=== PATIENT | male | born 1955 | race Caucasian/White ===

== ENCOUNTER 2016-12-07 09:13 | Emergency (ER) | payer BC ==
--- NOTE | 2016-12-07 09:50 | ED ---
Back Pain - HPI Summary HPI Summary: Pt here w/ Rt flank pain x 1 month. Initially was worse w/ twisting. Now it's worse w/ lying down for a period of time - better with standing. Feels "fullness " here w/ deep breath but no pain. Denies fever, chills, N/V/D, chest pain, SOB , cough, ab pain, dysuria, urinary frequency, hematuria, change in BM's or digestion in general (eating well, no pain, no hematochezia), skin changes, numbness, tingling, weakness. No injury leading up to pain/overuse. H/o Rt nephrolithiasis - passed 1 which was 0.5cm - was told he has another stone lingering in there a few years ago. 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 - Pain Intensity: 8 - Allergies/Home Medications Allergies/Adverse Reactions: Allergies Allergy/AdvReac Type Severity Reaction Status Date / Time No Known Allergies Allergy Verified 12/07/16 09:34 PMH/Surg Hx/FS Hx/Imm Hx Previously Healthy: Yes Endocrine/Hematology History: Reports: Hx Diabetes - ON ORAL MEDS - well controlled Cardiovascular History: Reports: Hx Hypercholesterolemia - on statin Denies: Hx Hypertension, Hx Pacemaker/ICD Respiratory History: Denies: Hx Asthma, Hx Chronic Obstructive Pulmonary Disease (COPD), Hx Pneumonia, Hx Pulmonary Embolism GI History: Denies: Hx Cirrhosis, Hx Crohn's Disease, Hx Diverticulosis, Hx Gall Bladder Disease, Hx Gastroesophageal Reflux Disease, Hx Gastrointestinal Bleed, Hx Irritable Bowel, Hx Ulcer History: Reports: Hx Kidney Stones - RIGHT SIDE. Denies: Hx Kidney Infection, Hx Renal Disease Musculoskeletal History: Denies: Hx Arthritis, Hx Back Problems Sensory History: Denies: Hx Contacts or Glasses, Hx Hearing Aid Opthamlomology History: Denies: Hx Contacts or Glasses Psychiatric History: Denies: Hx Panic Disorder - Surgical History Surgery Procedure, Year, and Place: KIDNEY STONE REMOVED. LEFT SHOULDER- CALCIUM BUILD UP. THROAT SURGERY FOR SLEEP APNEA. LEFT FOOT/ANKLE SURGERY A CHILD Hx Anesthesia Reactions: No - Immunization History Date of Tetanus Vaccine: unknown Infectious Disease History: No Infectious Disease History: Denies: Traveled Outside the [place] in Last 30 Days - Family History Known Family History: Positive: None - Social History Occupation: Employed Full-time Lives: With Family Alcohol Use: Occasionally Hx Substance Use: No Substance Use Type: Reports: None Hx Tobacco Use: No Smoking Status (MU): Never Smoked Tobacco Review of Systems Constitutional: Negative Negative: Fever, Chills, Fatigue ENT: Negative Negative: Sore Throat, Ear Ache, Nasal Discharge Cardiovascular: Negative Negative: Palpitations, Chest Pain Respiratory: Negative Negative: Shortness Of Breath, Cough Gastrointestinal: Negative Negative: Abdominal Pain, Vomiting, Diarrhea, Nausea Positive: see HPI, flank pain - see HPI. Negative: burning, dysuria, discharge , frequency, hematuria, incontinence, pain, urgency Musculoskeletal: Other - back pain as in HPI Negative: Decreased ROM Skin: Negative Negative: Rash, Bruising Neurological: Negative Negative: Headache, Weakness, Paresthesia, Numbness, Syncope, Slurred Speech Psychological: Normal All Other Systems Reviewed And Are Negative: Yes Physical Exam Triage Information Reviewed: Yes Vital Signs On Initial Exam: Initial Vitals Temp Pulse Resp BP Pulse Ox 97.6 F 86 20 145/91 96 12/07/16 09:16 12/07/16 09:16 12/07/16 09:16 12/07/16 09:16 12/07/16 09:16 Vital Signs Reviewed: Yes Appearance: Positive: Well-Appearing, No Pain Distress, Obese Skin: Positive: Warm, Dry - no erythema, no ecchymosis, no lesions over affected area Head/Face: Positive: Normal Head/Face Inspection Eyes: Positive: Normal, EOMI, Conjunctiva Clear - anicteric sclera ENT: Positive: Hearing grossly normal, Pharynx normal - mucosa moist. Negative : Nasal congestion, Nasal drainage Neck: Positive: Supple, Nontender, No Lymphadenopathy Respiratory/Lung Sounds: Positive: Clear to Auscultation, Breath Sounds Present. Negative: Rales, Rhonchi, Wheezes Cardiovascular: Positive: Normal, RRR, S1, S2. Negative: Murmur, Rub Abdomen Description: Positive: Nontender, No Organomegaly, Soft, CVA Tenderness (R) - very mild. Negative: CVA Tenderness (L) Musculoskeletal: Positive: Normal, Strength/ROM Intact - no pain w/ ROM and no pain w/ resisted ROM cervical spine, UE. Negative: Pain @ - AP and lateral compression of chest do not reproduce pain Neurological: Positive: Normal, Sensory/Motor Intact, Alert, Oriented to Person Place, Time, CN Intact II-III Psychiatric: Positive: Normal - Brandon Coma Scale Coma Scale Total: 15 Diagnostics - Vital Signs Vital Signs Temp Pulse Resp BP Pulse Ox 12/07/16 09:16 97.6 F 86 20 145/91 96 - Laboratory Result Diagrams: 12/07/16 09:55 12/07/16 09:55 Lab Statement: Any lab studies that have been ordered have been reviewed, and results considered in the medical decision making process. Back Pain Course/Dx - Course Course Of Treatment: Pt presents w/ Rt flank pain x 1 month worse lately w/ lying flat - better with standing. PE, labs and imaging are negative for acute infectious, obstructive or malignant pathology. Suspect VICKY strain d/t HPI - CT was ordered as pt has h/o stones and discussion w/ family offering U/S vs/ CT, pt and family chose CT. Will have him f/u w/ PCP - may benefit from PT. Reviewed danger s/sx of when to return to ED. - Diagnoses Provider Diagnoses: Right flank pain Discharge - Discharge Plan Condition: Stable Disposition: HOME Patient Education Materials: Muscle Strain (ED), Back Pain (ED), Flank Pain (ED ) Referrals: Willem Brooks MD [Primary Care Provider] - Additional Instructions: Suspect musculoskeletal pain - followup with PCP - call to make an appointment. You may benefit from Physical Therapy. In the meantime, you may try ibuprofen with food, acetaminophen, topical analgesic (bengay, etc) *If you develop severe pain, chest pain, shortness of breath, vomiting, fever, return to ED
[2016-12-07 10:11] LABS: Urine Bilirubin Negative (Negative); Urine Glucose Negative (Negative); Urine Nitrite Negative (Negative)
[2016-12-07 10:11] LABS: Hematocrit 41 % (42-52); Hemoglobin 13.9 g/dl (14.0-18.0); Mean Corpuscular HGB Conc 34 g/dl (31-36); Mean Corpuscular Hemoglobin 30 pg (27-31); Mean Corpuscular Volume 88 fL (80-94); Mean Platelet Volume 9 um3 (7.4-10.4); Red Blood Count 4.64 10^6/ul (4.0-5.4); Red Cell Distribution Width 14 % (10.5-15); White Blood Count 6.7 10^3/ul (3.5-10.8)
[2016-12-07 10:27] LABS: ALT 20 U/L (7-52); AST 15 U/L (13-39); Albumin 4.4 g/dL (3.2-5.2); Alkaline Phosphatase 68 U/L (34-104); Anion Gap 8 mmol/L (2-11); BUN/Creatinine Ratio 18.1 (8-20); Blood Urea Nitrogen 15 mg/dL (6-24); C Reactive Protein < 1.00 mg/L (< 5.00); CO2 Carbon Dioxide 24 mmol/L (22-32); Calcium 9.7 mg/dL (8.6-10.3); Chloride 103 mmol/L (101-111); EGFR African American 121.1 (>60); EGFR Non-African American 94.2 (>60); Glucose 153 mg/dL (70-100); Sodium 135 mmol/L (133-145); Total Protein 7.4 g/dL (6.4-8.9)
--- NOTE | 2016-12-07 11:24 | RAD ---
INDICATION: Right flank pain COMPARISON: January 21, 2012 TECHNIQUE: Noncontrast axial source images were acquired from the level hemidiaphragms to the symphysis pubis as part of CT imaging for renal stone. Lung bases: The lung bases are clear. There is a small amount of subpleural fat most prominent in the left base. Liver: The liver is normal in size. Noncontrast imaging shows no evidence of a hepatic mass or ductal dilatation. Gallbladder: There are no calcified gallstones. There is no evidence of wall thickening or pericholecystic fluid.. Spleen: The spleen is normal in size. The noncontrast CT appearance is normal. Pancreas: Noncontrast imaging shows no pancreatic mass or ductal dilitation. Adrenal glands: No masses are identified. Kidneys/Bladder: There are multiple nonobstructive left renal calculi measuring up to 5 mm. This is not the patient's symptomatic side. There is no evidence of right-sided nephrolithiasis or ureterolithiasis there is no renal mass on noncontrast evaluation. The bladder appears normal. Adenopathy: There is no evidence of intraperitoneal or retroperitoneal adenopathy. Evaluation is limited without oral contrast. Fluid collections: There are no free or localized fluid collections. Vessels: The aorta and iliac vessels are normal in caliber. There are no significant atherosclerotic changes. The IVC appears normal Pelvic organs: The prostate and seminal vesicles appear normal GI tract: Evaluation of the bowel is limited without oral contrast. The stomach, small bowel, and lower GI tract appear grossly normal. There are no obstructive findings. The appendix is visualized and appears normal. Soft tissues: No soft tissue abnormalities of the extraperitoneal abdomen or pelvis are identified. Osseous structures: There are no acute osseous findings. IMPRESSION: NONOBSTRUCTIVE LEFT-SIDED NEPHROLITHIASIS. NO CT FINDINGS TO ACCOUNT FOR THE PATIENT'S RIGHT-SIDED PAIN.
[2016-12-07 11:52] VITALS: BP 137/84
== END 2016-12-07 11:53 | disposition home or self-care (01) ==
LOC: ED 09:13
DX: R10.84 Generalized abdominal pain (principal)
CPT/HCPCS: 36415; 74176; 80053; 81003; 83605; 85025; 86140; 99282

== ENCOUNTER 2016-12-23 14:17 | Emergency (ER) | payer BC ==
[2016-12-23] MEDS ORDERED: HYDROmorphone INJ* 2 MG/ML CARPUJECT SYRINGE IV SLOW PU ONE (14:46)
[2016-12-23] MEDS ORDERED: Ketorolac INJ* 30 MG/ML 1 ML VIAL IV PUSH ONE (14:46)
[2016-12-23] MEDS ORDERED: Ondansetron INJ* 2 MG/ML VIAL IV ONE (14:46)
--- NOTE | 2016-12-23 15:01 | ED ---
GI/ HPI - HPI Summary HPI Summary: 61M presents with severe LLQ pain today. He states it started out of nowhere at 12:30 today at work. He states pain started in left testicle and has radiated up since to LLQ. He denies any dysuria, hematuria. He denies any diarrhea, vomiting, or constipation. He admits to nausea. He has history of kidney stones which states feels similar but was never on this side. He states pain is sharp and 10/10. He has not taken anything for his pain. He had not had any previous abdominal surgeries. no fever. no chest pain or SOB. no history of diverticulitis. He had a CT on 12/07 which showed nonobstructive left sided nephrolithiasis. He is a DM on metformin. - History of Current Complaint Chief Complaint: EDAbdPain Time Seen by Provider: 12/23/16 14:39 Stated Complaint: LEFT ABD PAIN Pain Intensity: 10 - Allergy/Home Medications Allergies/Adverse Reactions: Allergies Allergy/AdvReac Type Severity Reaction Status Date / Time No Known Allergies Allergy Verified 12/23/16 15:14 PMH/Surg Hx/FS Hx/Imm Hx Endocrine/Hematology History: Reports: Hx Diabetes - ON ORAL MEDS - well controlled Cardiovascular History: Reports: Hx Hypercholesterolemia - on statin Denies: Hx Hypertension, Hx Pacemaker/ICD Respiratory History: Denies: Hx Asthma, Hx Chronic Obstructive Pulmonary Disease (COPD), Hx Pneumonia, Hx Pulmonary Embolism GI History: Denies: Hx Cirrhosis, Hx Crohn's Disease, Hx Diverticulosis, Hx Gall Bladder Disease, Hx Gastroesophageal Reflux Disease, Hx Gastrointestinal Bleed, Hx Irritable Bowel, Hx Ulcer History: Reports: Hx Kidney Stones - RIGHT SIDE. Denies: Hx Kidney Infection, Hx Renal Disease Musculoskeletal History: Denies: Hx Arthritis, Hx Back Problems Sensory History: Denies: Hx Contacts or Glasses, Hx Hearing Aid Opthamlomology History: Denies: Hx Contacts or Glasses Psychiatric History: Denies: Hx Panic Disorder - Surgical History Surgery Procedure, Year, and Place: KIDNEY STONE REMOVED. LEFT SHOULDER- CALCIUM BUILD UP. THROAT SURGERY FOR SLEEP APNEA. LEFT FOOT/ANKLE SURGERY A CHILD Hx Anesthesia Reactions: No - Immunization History Date of Tetanus Vaccine: unknown Infectious Disease History: No Infectious Disease History: Denies: Traveled Outside the [place] in Last 30 Days - Family History Known Family History: Positive: None - Social History Alcohol Use: Occasionally Hx Substance Use: No Substance Use Type: Reports: None Hx Tobacco Use: No Smoking Status (MU): Never Smoked Tobacco Review of Systems Negative: Fever Negative: Chest Pain Negative: Shortness Of Breath Positive: Abdominal Pain, Nausea. Negative: Vomiting, Diarrhea Positive: flank pain All Other Systems Reviewed And Are Negative: Yes Physical Exam Triage Information Reviewed: Yes Vital Signs On Initial Exam: Initial Vitals Temp Pulse Resp BP Pulse Ox 96.9 F 89 18 179/122 96 12/23/16 14:22 12/23/16 14:22 12/23/16 14:22 12/23/16 14:22 12/23/16 14:22 Vital Signs Reviewed: Yes Appearance: Positive: Pain Distress Skin: Positive: Warm, Dry Head/Face: Positive: Normal Head/Face Inspection Eyes: Positive: Normal, Conjunctiva Clear ENT: Positive: Normal ENT inspection, Pharynx normal, TMs normal Respiratory/Lung Sounds: Positive: Clear to Auscultation, Breath Sounds Present Cardiovascular: Positive: Normal, RRR Abdomen Description: Positive: Soft, CVA Tenderness (L), Other: - tenderness in LLQ moderate Bowel Sounds: Positive: Present Musculoskeletal: Positive: Normal Neurological: Positive: Normal Psychiatric: Positive: Normal Diagnostics - Vital Signs Vital Signs Temp Pulse Resp BP Pulse Ox 12/23/16 14:22 96.9 F 89 18 179/122 96 - Laboratory Result Diagrams: 12/23/16 14:59 12/23/16 14:59 Lab Statement: Any lab studies that have been ordered have been reviewed, and results considered in the medical decision making process. - CT No standard instances CT Interpretation: Positive (See Comments) - IMPRESSION: 1. 3 X 5 MM CALCULUS IN THE PROXIMAL LEFT URETER CAUSING MILD HYDRONEPHROSIS. 2. ADDITIONAL SMALL NONOBSTRUCTING LEFT RENAL CALCULI. 3. HEPATIC STEATOSIS. CT Interpretation Completed By: Radiologist Re-Evaluation - Re-Evaluation First Eval Re-Evaluation Time: 16:01 Change: Improved Comment: pain is now a 4/10 GIGU Course/Dx - Course Course Of Treatment: 61M presents with severe LLQ pain today. He states it started out of nowhere at 12:30 today at work. He states pain started in left testicle and has radiated up since to LLQ. He denies any dysuria, hematuria. He denies any diarrhea, vomiting, or constipation. He admits to nausea. He has history of kidney stones which states feels similar but was never on this side. He states pain is sharp and 10/10. He has not taken anything for his pain. He had not had any previous abdominal surgeries. no fever. no chest pain or SOB. no history of diverticulitis. He had a CT on 12/07 which showed nonobstructive left sided nephrolithiasis. He is a DM. on exam has pos CVA tenderness, moderate tenderness in LLQ. diff dx: stone vs diveriticulitis vs testicular torsion. will get CT. Ct shows 3x5mm stone in prximal left ureter causing mild hydro. dr cancino saw pt in ED and recommend another liter of fluid and flomax. urine no infection. wrote script for percocet, zofran, and flomax and will have follow up with urology in morning. patient understand and agrees with plan. - Diagnoses Differential Diagnoses - Male: Pyelonephritis, Testicular Torsion, Ureteral Calculi, Urinary Tract Infection Provider Diagnoses: Ureteral stone - Physician Notifications Discussed Care Of Patient With: dr cancino Time Discussed With Above Provider: 16:20 - will see in ED, kub, another liter fluid Discharge - Discharge Plan Condition: Good Disposition: HOME Prescriptions: Ondansetron ODT TAB* [Zofran 4 MG Odt TAB*] 4 mg PO Q6H PRN #16 tab.odt PRN Reason: Nausea oxyCODONE/Acetamin 5/325 MG* [Percocet 5/325 TAB*] 1 tab PO Q4H PRN #18 tab MDD 6 PRN Reason: Pain Tamsulosin CAP* [Flomax CAP*] 0.4 mg PO DAILY #7 cap Patient Education Materials: Kidney Stones (ED) Referrals: Willem Brooks MD [Primary Care Provider] - Nehemias Cancino MD [Medical Doctor] - Additional Instructions: Take ibuprofen every 6 hours and narcotic as needed every 4-6 hours Take Zofran every 6 hours for nausea as needed Take Flomax daily starting tomorrow, first dose given in ED until stone expelled , make sure stand up slowly Follow up with urology, call office tomorrow for appointment Strain urine until collect stone Return to ED if unable to manage pain at home, develop fever, or any new or worsening symptoms
[2016-12-23] MEDS: NS 0.9% 1000 ML* 2,000 ML IV ONE ×2 (15:02→16:41)
[2016-12-23 15:07] LABS: Hematocrit 43 % (42-52); Hemoglobin 14.3 g/dl (14.0-18.0); Mean Corpuscular HGB Conc 33 g/dl (31-36); Mean Corpuscular Hemoglobin 29 pg (27-31); Mean Corpuscular Volume 88 fL (80-94); Mean Platelet Volume 9 um3 (7.4-10.4); Red Blood Count 4.88 10^6/ul (4.0-5.4); Red Cell Distribution Width 14 % (10.5-15); White Blood Count 10.7 10^3/ul (3.5-10.8)
[2016-12-23 15:26] LABS: Albumin 4.9 g/dL (3.2-5.2); BUN/Creatinine Ratio 15.5 (8-20); Calcium 10.3 mg/dL (8.6-10.3); EGFR African American 87.5 (>60); EGFR Non-African American 68.1 (>60); Globulin 3.1 g/dL (2-4); Potassium 4.4 mmol/L (3.5-5.0); Total Bilirubin 0.5 mg/dL (0.2-1.0)
--- NOTE | 2016-12-23 15:48 | RAD ---
INDICATION: Left flank and left lower quadrant pain. COMPARISON: Comparison is made with a prior CT of the abdomen and pelvis from December 07, 2016. TECHNIQUE: A CT scan of the abdomen and pelvis was performed without intravenous or oral contrast. Contiguous axial sections were obtained from the lung bases through the symphysis pubis. Images were reconstructed in the coronal and sagittal planes. FINDINGS: There is mild dependent bilateral lower lobe subsegmental atelectasis. No pleural effusion is present. The liver is decreased in attenuation consistent with fatty infiltration. No significant focal abnormality is seen on this noncontrast study. No calcified gallstones are noted. The spleen is within normal limits in size. The pancreas appears to be within normal limits. The adrenal glands and kidneys are normal in size. There are small nonobstructing left renal calculi measuring 1 to 3 mm in size. In addition there is a 3 x 5 mm calculus present in the proximal left ureter causing mild hydronephrosis. No bladder calculi are seen. The prostate gland appears normal in size. The aorta is normal in caliber with mild calcific plaque present. No significant enlarged retroperitoneal lymph nodes are seen. The stomach, small and large bowel appear nondistended. The appendix is within normal limits. There is no evidence for diverticulitis or colitis. There is a small periumbilical hernia containing fat. No free intraperitoneal air or fluid is seen. No significant focal osseous abnormality is seen. IMPRESSION: 1. 3 X 5 MM CALCULUS IN THE PROXIMAL LEFT URETER CAUSING MILD HYDRONEPHROSIS. 2. ADDITIONAL SMALL NONOBSTRUCTING LEFT RENAL CALCULI. 3. HEPATIC STEATOSIS.
[2016-12-23] MEDS ORDERED: NS 0.9% 1000 ML* 1,000 ML IV ONE (16:20)
--- NOTE | 2016-12-23 16:49 | RAD ---
Indication: LEFT flank pain. History of urolithiasis. Comparison: December 23, 2016 CT. Technique: Supine abdomen Report: Typical partial obscuration of the renal fossa due to bowel contents. 3 mm stone visualized at the level of the midpole the LEFT kidney corresponding with dominant LEFT renal stone on CT. No suspicious calcifications along the course of the ureters. Based on correlation with CT a RIGHT pelvic phlebolith is noted. Unremarkable soft tissue contours. IMPRESSION: 3 mm stone visualized at the level of the midpole the LEFT kidney corresponding with dominant LEFT renal stone on CT.
[2016-12-23] MEDS ORDERED: Tamsulosin CAP* 0.4 MG PO ONE (17:12)
[2016-12-23 17:21] LABS: Urine Bacteria Absent (Absent); Urine Bilirubin Negative (Negative); Urine Glucose 1+(50 mg/dL) (Negative); Urine Nitrite Negative (Negative)
[2016-12-23 17:42] VITALS: BP 122/83
--- NOTE | 2016-12-23 22:34 | CONS ---
CC: Willem Brooks MD * UROLOGY CONSULTATION NOTE: DATE OF CONSULT: 12/23/16 REQUESTING PHYSICIAN: Harshil Haynes MD DIAGNOSES: 1. Left flank pain. 2. Calculus, left proximal ureter. 3. Left hydronephrosis. HISTORY OF PRESENT ILLNESS: Suresh Courtney is a 61-year-old diabetic with a history of recurrent renal calculi. He presented to the emergency room with left flank pain and nausea and a CT scan revealed a 5 mm calculus in the proximal left ureter with mild left hydronephrosis and additional smaller renal calculi. He had been in the emergency room 2 weeks prior for right flank pain and a CT scan at that time had revealed nonobstructing left renal calculi with no calculus noted in the left ureter at that time. PAST MEDICAL HISTORY: Significant for: 1. Diabetes mellitus. 2. Recurrent renal calculi. MEDICATIONS: On admission: 1. Metformin 500 mg daily (this medication list is obtained from the ER profile but I will try to obtain an updated list from Dr. Brooks's office). 2. Atorvastatin 10 mg daily. 3. Tamsulosin 0.4 mg daily. ALLERGIES: No known drug allergies. PHYSICAL EXAM: Physical exam reveals a moderately uncomfortable, overweight middle- aged gentleman. Blood pressure is 122/83, pulse 88 per minute, oxygen saturation 96% on room air. Cardiovascular Exam: Regular rate and rhythm. S1 , S2. Lungs are clear bilaterally. Abdomen is soft with minimal left flank tenderness. DIAGNOSTIC STUDIES/LAB DATA: Review of labs reveals a white count of 10.7, hemoglobin and hematocrit are normal at 14.3 and 43, platelet count is 312,000. Chemistries: Sodium is 136, potassium is 4.4, BUN and creatinine are 17 and 1.1 respectively. Glucose is 257. Urinalysis reveals 1+ protein, 3+ blood, 1+ white cells, and absent bacteria. I reviewed the CT scan done earlier this afternoon, which revealed an approximately 5 mm calculus in the proximal left ureter with mild left hydronephrosis and additional left renal calculi, all of which appear smaller than 3 to 4 mm in size. IMPRESSION: I had a detailed discussion with the patient and his regarding the management options. I think the stone is small enough that he should be able to pass it spontaneously and I recommended discharge with oral analgesics, Flomax and anti-nausea medications. I have instructed him to call me if there is any severe pain or any fever, temperature over 101 or persistent vomiting. Otherwise, the plan is for him to be seen as an outpatient in the next 24 to 48 hours. [id number]/[facility] #: [id number] MTDD
== END 2016-12-23 18:37 | disposition home or self-care (01) ==
LOC: ED 14:17
DX: N20.1 Calculus of ureter (principal); R10.32 Left lower quadrant pain; R11.0 Nausea
CPT/HCPCS: 36415; 74000; 74176; 80053; 81003; 81015; 83690; 85025; 86141; 96374; 96375; 99283; J1170; J1885; J2405

== ENCOUNTER 2017-07-02 05:56 | Day surgery (SDC) | payer BC ==
[~2017-07-02 05:56] MED LIST: Buffered Lidocaine 0.9% SYRIN* 5 ML/SYR SYRINGE INTRADERM ONE; ROPIVACAINE 5 MG/ML 30 ML BTL (0.5%) ONE
[2017-07-02] MEDS ORDERED: Dexamethasone IV* 4 MG/ML 1 ML (4 MG) IV SLOW PU ONE (06:00)
[2017-07-02] MEDS ORDERED: Famotidine IV* 10 MG/ML 2 ML (20 mg) IV ONE (06:00)
[2017-07-02] MEDS ORDERED: Dexamethasone IV* 4 MG/ML 1 ML (4 MG) ONE (06:07)
[2017-07-02] MEDS ORDERED: ceFAZolin 2 GM PREMIX (*) 2 GM/50 ML BAG IVPB ONE (06:08)
[2017-07-02] MEDS ORDERED: Buffered Lidocaine 0.9% SYRIN* 5 ML/SYR SYRINGE ONE (06:08)
[2017-07-02] MEDS ORDERED: Famotidine IV* 10 MG/ML 2 ML (20 mg) ONE (06:08)
[2017-07-02] MEDS ORDERED: EPINEPHRINE 1 MG/ML 1 ML VIAL ONE (06:54)
[2017-07-02] MEDS ORDERED: Bupivacaine 0.5% PF 10 ML VIAL INJ ONE (06:54)
[2017-07-02] MEDS ORDERED: Midazolam* 1 MG/ML 5 ML VIAL (5 MG) ONE (07:03)
[2017-07-02] MEDS ORDERED: Atracurium* 10 MG/ML 10 ML VIAL ONE (07:03)
[2017-07-02] MEDS ORDERED: fentaNYL* 50 MCG/ML 2 ML VIAL (100 MCG VIAL) ONE ×3 (07:03→09:22)
[2017-07-02] MEDS ORDERED: Ketorolac INJ* 30 MG/ML 1 ML VIAL ONE (07:04)
[2017-07-02] MEDS ORDERED: Propofol* 10 MG/ML 20 ML BTL IV PUSH ONE (07:04)
[2017-07-02] MEDS ORDERED: EPHEDrine (Pressors)* 50 MG/ML VIAL ONE (08:13)
[2017-07-02] MEDS ORDERED: Naloxone* 0.4 MG/ML 1 ML VIAL IV PRN (08:36)
[2017-07-02] MEDS ORDERED: DiMENhydriNATE IV* 50 MG/ML VIAL IV PUSH PRN (08:36)
[2017-07-02] MEDS ORDERED: oxyCODONE/Acetamin 5/325 MG* TAB PO PRN (08:36)
[2017-07-02] MEDS ORDERED: fentaNYL* 50 MCG/ML 2 ML VIAL (100 MCG VIAL) IV PRN (08:36)
[2017-07-02] MEDS ORDERED: HYDROmorphone INJ* 1 MG/ML CARPUJECT SYRINGE IV PRN (08:36)
[2017-07-02] MEDS ORDERED: Ondansetron ODT TAB* 4 MG PO PRN (08:36)
[2017-07-02] MEDS ORDERED: Metoprolol Tartrate IV* 1 MG/ML 5 ML VIAL ONE (10:03)
[2017-07-02 13:28] VITALS: BP 142/90
--- NOTE | 2017-07-04 21:38 | OP ---
DATE OF SURGERY: 07/02/17 - [facility] DATE OF : 55 SURGEON: Bharat Le MD. FOREIGN CLERK: JESSE Rodriguez. A physician assistant coach was required for the length of the procedure for positioning, help with instrumentation, and closure. ANESTHESIOLOGIST: Dr. Willem Morales. ANESTHESIA: General anesthesia, interscalene block regional anesthesia, 10 cc of local anesthesia, Marcaine 0.5% without epinephrine placed in the subcutaneous tissue about the open distal incision. PREOPERATIVE DIAGNOSES: 1. Left shoulder rotator cuff tendon tear, supraspinatus. 2. Left shoulder possible rotator cuff tendon tear, subscapularis. 3. Left shoulder subacromial impingement. 4. Left shoulder AC joint arthritis. 5. Possible left shoulder biceps tendinosis. POSTOPERATIVE DIAGNOSES: 1. Left shoulder rotator cuff tendon tear, supraspinatus, full thickness and full width. 2. No clear left shoulder subscapularis rotator cuff tendon tear. 3. Left shoulder subacromial impingement. 4. Left shoulder AC joint arthritis. 5. Left shoulder proximal biceps, long head, partial thickness tearing and tendinosis, significant. 6. Left shoulder capsulitis. OPERATIVE PROCEDURE: 1. Left shoulder evaluation under anesthesia. 2. Left shoulder manipulation under anesthesia. 3. Left shoulder arthroscopic rotator cuff tendon repair, supraspinatus, double row. 4. Left shoulder arthroscopic subacromial decompression. 5. Left shoulder arthroscopic distal clavicle resection. 6. Left shoulder open proximal biceps tenodesis, subpectoral. ANTIBIOTICS: Ancef 2 g IV. IV FLUIDS: 1900 cc crystalloid. SKIN TO SKIN TIME: 134 minutes. ARTHROSCOPIC FLUID USED: Fourteen bags each with 3 L. However, the last bag was not completely used, so the patient had infused 39.5 L total arthroscopically. SPECIMEN: None. IMPLANTS: [employer] Healix 5.5 mm triple loaded anchor x1. Healix knotless anchor x1 with the suture used from it. Arthrex proximal biceps unicortical metal button used as well. COMPLICATIONS: None. ESTIMATED BLOOD LOSS: Minimal. 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 MRI had indicated rotator cuff tendon tear, full thickness supraspinatus and possible subscapularis. As well, there was evidence of subacromial impingement, AC joint arthritis. Based on exam, there was some possible biceps tendinosis proximally as well. We discussed continued non-operative and operative treatment options. The patient opted for surgery. I had the patient think about what he would prefer if the biceps needed to be treated and the patient considered tenotomy or tenodesis, open. The patient opted for open tenodesis if the biceps needed treatment. Discussed risks and potential complications including bleeding, infection, nerve or blood vessel injury, shoulder pain, stiffness, osteoarthritis, rotator cuff tendon retear. DESCRIPTION OF PROCEDURE: The patient signed a written consent in preoperative holding. Operative extremity was marked in preoperative holding. In preoperative holding, the patient had an interscalene regional nerve block performed by Dr. Morales. The patient was taken back to the operating room, placed supine on operating room table. The patient was sedated and intubated. A mini time-out was then performed. Evaluation under anesthesia was performed. The patient was noted to on evaluation under anesthesia have 160 degrees of forward flexion, 90 degrees of external and 80 degrees of internal rotation. I then performed a manipulation. With safe standard technique, I manipulated the shoulder to obtain 180 degrees of forward flexion. I felt crackling, capsule tearing, with that additional 20 degrees of forward flexion gained. The patient thereafter had 180 degrees of forward flexion, 90 degrees of external and 90 degrees of internal rotation. The patient was placed in the lateral decubitus position with the left shoulder up. All bony prominences were padded. Axillary roll was placed. A leija bag was hardened. Longitudinal traction of 15 pounds in the appropriate amount of forward flexion and abduction. Left shoulder was prepped and draped. Surgical time-out was performed. A 30 cc of normal saline were injected using a spinal needle into the glenohumeral joint from posterior. I established a posterior glenohumeral joint portal using standard technique. I commenced my diagnostic arthroscopy. The first thing visualized was an incredibly frayed proximal biceps tendon with much partial thickness tearing to it. The supraspinatus was clearly torn full thickness. I was able to visualize up into subacromial. No articular cartilage lesions to the humerus or glenoid. I tried to visualize the subscapularis. Poor visualization at first given the biceps, very frayed in a way. Given that I thought that I would be performing a subscapularis repair, I first established a superior anterior glenohumeral joint portal under direct visualization. I entered an arthroscopic shaver and shaved some fraying of the proximal biceps tendon. It was clear that it needed to be treated, so I then placed a biter and cut the biceps tendon long head just from its origin. I introduced a shaver and shaved out the stump attached to the superior labrum. Using the arthroscopic shaver, I debrided some rotator interval synovitic tissue. I next spent a long while evaluating the subscapularis and considering a repair. I visualized the subscapularis to not be retracted at all clearly. There was a question of its insertion point. The superior aspect of the subscapularis clearly inserted very far laterally into a combination of soft tissue and bone. I manipulated the humeral head appropriately, posteriorly translating it to obtain an excellent view of the subscapularis tendon. There was no clear empty footprint for the subscapularis tendon. I considered placement of an anchor and even opened one. I could not convince myself that there was a clear subscapularis tendon tear that needed to be repaired. Given the large supraspinatus tear that was clearly much more symptomatic, I decided to move forward to the supraspinatus. I removed instruments and fluid from the glenohumeral joint. I entered the subacromial space from posterior and anterior. I established a lateral subacromial portal under direct visualization and debrided with my arthroscopic shaver a significant amount of bursitic tissue about the subacromial space. The patient had a clear crescent shaped tear of the supra-spinatus, full thickness, full width. I noticed on preoperative MRI imaging that it appeared that the patient had some scar tissue and synovitic tissue attached to the lateral end of the rotator cuff tendon. Therefore, I predicted that the patient would have some poor quality tissue at the lateral edge of the rotator cuff. This appeared to be cracked. I established a posterolateral portal from improved visualization. I debrided the edge of the rotator cuff tendon with arthroscopic shaver. I debrided back to a good quality tissue. The patient had a large exposed footprint of greater tuberosity. I used a grasper and found that the rotator cuff tendon could be easily brought to bone without any tension. I debrided the undersurface of the acromion with a vapor cautery device. I next performed a subacromial decompression removing as much as 8 mm anterior aspect of the acromion. I also prepped the greater tuberosity footprint with the arthroscopic carri to improve healing. I next placed a superolateral skin and placed an anchor into the more medial aspect of the footprint, 5.5 mm, Healix, triple loaded. I had placed a Arthrex 7 mm plastic cannula in an anteroinferior portal. I then placed one in a lateral portal. I placed 3 horizontal mattress sutures in the subscapularis tendon using a [employer] passage device. I passed all sutures before time. I next tied my horizontal mattress knots. This brought the tendon nicely to bone. Given the size of the tear, I decided to place a lateral row anchor. I loaded 4 sutures, 2 from the central knot and one each from the anterior and posterior most knots into a 5.5 mm anchor and then placed that just lateral to the lateral edge of the footprint. This brought down the tendon nicely to bone. There was a small dog- ear, I believe that was between the central and the posterior knots as you work from anterior to posterior. I used the suture from the knotless anchor to place a horizontal mattress stitch in that tendon to bring even more tendon to bone. The tendon was nicely opposed to bone with a stable repair as measured with movement of the humerus and with the use of my arthroscopic probe. Having completed the rotator cuff repair, I proceeded to address the AC joint. I debrided a significant amount of synovitic tissue with a vapor device about the AC joint. I then debrided 8 mm at the lateral aspect of the distal clavicle with an arthroscopic carri. Instruments and fluid were removed from the subacromial space. I closed the skin incisions with [id number] and 12 stitches using nylon 4-0 suture. The leija bag was softened and the patient was converted to a supine position with the Anesthesia watching the head and neck. I made a short, 4 mm longitudinal skin incision in the anteromedial upper arm centered just distal to the inferior edge of the pectoralis major tendon. I dissected through subcutaneous tissue. I followed the inferior edge of the pectoralis major tendon to the bicipital groove. I released some fascia. I removed the long head of the biceps tendon. I placed retractors. I placed a pin through the anterior cortex of the proximal humerus. I placed 4 stitches with a FiberLoop suture in the biceps tendon, to create the correct length tension relationship with the biceps postoperatively. I loaded my biceps anchor. I placed the biceps anchor and then flipped it. I tied a knot. I placed one more stitch and tied another knot. I resected biceps tendon stump proximally and excess suture. Irrigation. Removal of retractors. Closure of the subcutaneous tissue with buried simple stitches using Vicryl 3-0 suture. Closure of the subcuticular layer with a running stitch using Monocryl 4-0 suture. Placement of 10 cc of Marcaine 0.5% without epinephrine in the subcutaneous tissue about the skin incision. I placed 4x4, and Tegaderm over this incision. I then dressed my arthroscopic surgical skin incisions with Xeroform, 4x4's, and ABD's. I placed a foam tape. The patient was placed into a sling with an abduction pill and a cooling unit. The patient was returned to the supine position and extubated. The patient was brought to the recovery room. DISPOSITION: The patient will start physical therapy immediately. Keflex, aspirin, Percocet p.r.n. The patient will follow up in 10 to 14 days in clinic. Wound care instructions provided. [id number]/[facility] #: [id number] MTDD
== END 2017-07-02 14:00 | disposition home or self-care (01) ==
LOC: OR 05:56
PROVIDERS: ATTEND Orthopaedic Surgery
DX: M75.122 Complete rotator cuff tear or rupture of left shoulder, not specified as traumatic (principal); M75.42 Impingement syndrome of left shoulder; M19.012 Primary osteoarthritis, left shoulder; M75.22 Bicipital tendinitis, left shoulder; M75.82 Other shoulder lesions, left shoulder; G89.18 Other acute postprocedural pain; E11.9 Type 2 diabetes mellitus without complications; Z79.84 Long term (current) use of oral hypoglycemic drugs; I10 Essential (primary) hypertension; G47.33 Obstructive sleep apnea (adult) (pediatric); E66.9 Obesity, unspecified
CPT/HCPCS: C1776; J0690; J1100; J1885; J2250; J2704; J2795; J3010; J3490

== ENCOUNTER → 2019-05-22 12:27 | Day surgery (SDC) | payer BC ==
--- NOTE | 2019-05-22 11:05 | HP ---
CC: Dr. Brooks DATE OF ADMISSION: 05/22/2019. AGE: 64-year-old male. ADMITTING DIAGNOSES: 1. Obstructing calculus left proximal ureter. 2. Left hydronephrosis. 3. Left renal calculus. PLANNED PROCEDURE: Left stent insertion and shockwave lithotripsy of calculus left ureter. SURGEON: Dr. Nehemias Dickinson. HISTORY OF PRESENT ILLNESS: Suresh Courtney is a 64-year-old diabetic with a history of recurrent haven l calculi. He was evaluated for increasing left flank pain and was noted to have on an ultrasound an approximately 7 mm calculus in the proximal left ureter with left hydronephrosis and an additional l eft renal calculus. PAST MEDICAL HISTORY: Significant for: 1. Diabetes mellitus. 2. Hypercholesterolemia. 3. History of anxiety. 4. Hypertension. PAST SURGICAL HISTORY: Significant for tonsillectomy, throat surgery for sleep apnea, left rotator c uff repair, foot surgery as a child. MEDICATIONS ON ADMISSION: 1. Losartan. 2. Potassium 50 mg daily. 3. Metformin 500 mg two tablets b.i.d. 4. Invokana 100 mg two tablets daily. 5. Atorvastatin 20 mg daily. ALLERGIES: No known drug allergies. FAMILY HISTORY: Negative for stones. SMOKING HISTORY: He is a nonsmoker. REVIEW OF SYSTEMS: He is otherwise in reasonably good health. He denies any chest pain or shortness of breath. PHYSICAL EXAMINATION GENERAL: Pleasant, middle-aged gentleman. VITAL SIGNS: Blood pressure 144/94, pulse 94 per minute and regular, temperature 95 degrees, oxygen saturation 95 percent on room air. CARDIOVASCULAR: Regular rate and rhythm, S1, S2. LUNGS: Clear bilaterally. ABDOMEN: Soft with left flank tenderness. IMPRESSION: Yeznk-dscr-plfx-old diabetic with a calculus in the left proximal ureter who is being b rought in for left stent insertion and shockwave lithotripsy of a calculus left ureter. His last heather ging was about three days ago, so my plan is to obtain an x-ray on admission today to see whether the re has been any distal progress of the calculus and if there has been, the procedure may have to be c hanged to a left ureteroscopy with laser. I discussed this all in detail with Mr. Courtney. PLAN: Left stent and shockwave lithotripsy of the calculus left ureter. [id number]/[facility] #: [id number]
[~2019-05-22 12:27] MED LIST changes: +Acetaminophen TAB* 325 MG PO ONE; +Acetaminophen TAB* 325 MG PO PRN; -Buffered Lidocaine 0.9% SYRIN* 5 ML/SYR SYRINGE INTRADERM ONE; +Buffered Lidocaine 1% SYRIN* 1 ML/SYRINGE INTRADERM ONE; +Dexamethasone IV* 4 MG/ML 1 ML (4 MG) ONE; +DiMENhydriNATE IV* 50 MG/ML VIAL IV PUSH PRN; +Famotidine IV* 10 MG/ML 2 ML (20 mg) IV ONE; +HYDROcodone/ACETAMIN 5-325 MG* 1 TAB PO PRN; +Iohexol 180 (CONTRAST) 10 ML SDV IV ONE; +Lactated Ringers 1000 ML Bag* 1,000 ML IV SCH; +Levalbuterol 0.63MG/3ML NEB* UNIT OF USE INH PRN; +Lidocaine 2% PF * 5 ML VIAL ONE; +Midazolam* 1 MG/ML 2 ML VIAL (2 MG) ONE; +Naloxone* 0.4 MG/ML 1 ML VIAL IV PRN; +Ondansetron INJ* 2 MG/ML VIAL IV PRN; +Ondansetron INJ* 2 MG/ML VIAL ONE; +Phenazopyridine TAB* 100 MG PO ONE; +Propofol* 10 MG/ML 20 ML BTL ONE; -ROPIVACAINE 5 MG/ML 30 ML BTL (0.5%) ONE; +Rocuronium* 10 MG/ML VIAL ONE; +cefTRIAXone(*) 2 GM ADDV.VIAL IVPB ONE; +fentaNYL* 50 MCG/ML 2 ML VIAL (100 MCG VIAL) IV PRN; +fentaNYL* 50 MCG/ML 2 ML VIAL (100 MCG VIAL) ONE
--- NOTE | 2019-05-22 18:38 | OP ---
CC: Dr. Willem Brooks; Dr. Nehemias Dickinson* OPERATIVE REPORT: DATE OF OPERATION: 05/22/19 - [facility] DATE OF : 55 SURGEON: Nehemias Dickinson MD ANESTHESIOLOGIST: Dr. Daley. ANESTHESIA: General. PRE-OP DIAGNOSES: 1. Calculus, left ureter. 2. Left hydronephrosis. POST-OP DIAGNOSES: 1. Calculus, left ureter. 2. Left hydronephrosis. OPERATIVE PROCEDURE: Cystoscopy, left retrograde pyelogram, left ureteroscopy, laser lithotripsy of the calculus left ureter and removal of calculus fragments , and left stent insertion. COMPLICATIONS: None. STENT USED: 7-Samoan stent, left ureter. POSTOPERATIVE CONDITION: Stable. SPECIMENS: Fragments of calculus, left ureter. INDICATIONS: Suresh Courtney is a 64-year-old diabetic with left flank pain secondary to a calculus in the left ureter. DESCRIPTION OF PROCEDURE: After induction of general anesthesia, the patient was placed in dorsal lithotomy position. Sequential compression devices were in place and functioning. Initial cystoscopy revealed a normal-appearing urethra and a mildly enlarged prostate. The bladder was examined. Clear efflux was noted from the right orifice. At this point, I did not see any efflux from the left orifice suggesting a complete obstruction. A guidewire was introduced into the left ureter and advanced under fluoroscopic monitoring. A 6-Samoan semi-rigid ureteroscope was introduced and advanced under direct vision. About 5 to 6 cm above the ureterovesical junction, an approximately 6 to 7 mm calculus was noted to be impacted with surrounding edema and inflammation. Using a 550 micron holmium laser fiber, this was successfully broken up into multiple fragments, which were then removed using a 3-pronged grasper. A 7-Samoan stent was introduced and positioned under fluoroscopy with good proximal and distal positioning obtained. The bladder was emptied. The patient tolerated the procedure satisfactorily and was transferred back to the recovery area in stable condition. [id number]/[facility] #: [id number] MTDD
[2019-05-22 20:35] VITALS: BP 147/93
== END | disposition home or self-care (01) ==
LOC: OR 12:27
PROVIDERS: ATTEND Urology
DX: N13.2 Hydronephrosis with renal and ureteral calculous obstruction (principal); E11.9 Type 2 diabetes mellitus without complications; Z79.84 Long term (current) use of oral hypoglycemic drugs; E78.00 Pure hypercholesterolemia, unspecified; I10 Essential (primary) hypertension; F41.9 Anxiety disorder, unspecified
CPT/HCPCS: 74018; 76000; 82365; 88300; A9270-GY; C1876; J0696; J1100; J2250; J2405; J2704; J3010